=== PATIENT | male | born 1995 | race Caucasian/White ===

== ENCOUNTER 2021-12-30 23:21 | Emergency (ER) | payer OTHER ==
[~2021-12-30] VITALS: Ht 170.2 cm; Wt 99.8 kg
[2021-12-30 23:25] VITALS: BP 126/70
--- NOTE | 2021-12-30 23:30 | NUR ---
Wheel chair to bed 8 with his family
[2021-12-31] MEDS ORDERED: diazePAM 5 MG TAB PO ONE (00:05)
[2021-12-31] MEDS ORDERED: KETOROLAC 60 MG/2 ML VIAL IM ONE (00:05)
[2021-12-31] MEDS ORDERED: methylPREDNISolone SS 125 MG in WATER STERILE 2 ML IM ONE (00:05)
[2021-12-31] MEDS ORDERED: LIDOCAINE 5% 1 EA PATCH TP SCH (00:05)
--- NOTE | 2021-12-31 00:07 | NUR ---
ER AT BEDSIDE EXAMINING THE PT
[2021-12-31] MEDS ORDERED: WATER STERILE 10 ML MC ONE (00:17)
[2021-12-31] MEDS ORDERED: methylPREDNISolone SS 125 MG/2 ML VIAL ONE (00:18)
--- NOTE | 2021-12-31 00:44 | NUR ---
pt returned from xray
--- NOTE | 2021-12-31 00:54 | NUR ---
26 Y/O MALE BIB FAMILY, C/O BACK PAIN. PT STATES HE HAS HAD REOCCURING BACK PAIN FROM PREVIOUS INJURIES, TODAY HE WAS WORKING OUT AND FELT THE PAIN; LOCATED IN RIGHT POSTERIOR HIP AREA; GOOD CMS. DENIES N/V/D; SKIN IS PINK/WARM/DRY; AAOX4; UNABLE TO AMBULATE W/O ASSISTANCE DUE TO PAIN; LUNGS CLEAR BL; HR EVEN AND REGULAR; PT DENIES ANY FEVER, CP, SOB, OR COUGH AT THIS TIME; PATIENT STATES PAIN OF 10/10 POSITIONAL; VSS; PATIENT POSITIONED FOR COMFORT; HOB ELEVATED; BEDRAILS UP X2; BED DOWN. ER MD MADE AWARE OF PT STATUS. TOOK OTC NAPROXEN 2-3 HRS AGO FOR PAIN PMHx: Chronic back pain (2019)
[2021-12-31] MEDS ORDERED: NAPR-54 PO (01:54)
[2021-12-31] MEDS ORDERED: LID5T TP (01:54)
[2021-12-31] MEDS ORDERED: METH4TAB1 PO (01:54)
[2021-12-31] MEDS ORDERED: CYCL-711 PO (01:54)
[2021-12-31 02:04] VITALS: BP 132/76
--- NOTE | 2021-12-31 02:06 | NUR ---
Patient discharged with v/s stable. Written and verbal after care instructions given and explained. Patient alert, oriented and verbalized understanding of instructions. Wheel Chair Assisted with to car. All questions addressed prior to discharge. ID band removed. Patient advised to follow up with PMD. Rx of FLEXERIL, LIDODERM 5% PATCH, MEDROL, AND NAPROXEN given. Patient educated on indication of medication including possible reaction and side effects. Opportunity to ask questions provided and answered. vss, a/ox4, ambulatory, unlabored breathing, and calm demeanor.
== END 2021-12-31 02:02 | disposition home or self-care (01) ==
LOC: MED 23:21
DX: M54.41 Lumbago with sciatica, right side (principal); Z79.899 Other long term (current) drug therapy
CPT/HCPCS: 72100; 96372; 99284; J1885; J2930